=== PATIENT | male | born 1995 | race Caucasian/White ===

== ENCOUNTER 2020-01-13 08:04 | Emergency (ER) | payer MEDICAID ==
[~2020-01-13] VITALS: Ht 182.9 cm; Wt 79.5 kg
[2020-01-13] MEDS ORDERED: LORazepam 2 MG TABLET PO ONE (09:15)
[2020-01-13 09:28] VITALS: BP 122/65
== END 2020-01-13 09:41 | disposition home or self-care (01) ==
LOC: EMS 08:05
DX: F15.10 Other stimulant abuse, uncomplicated (principal); F17.200 Nicotine dependence, unspecified, uncomplicated